=== PATIENT | female | born 1980 | race African-American/Black ===

== ENCOUNTER 2019-11-19 09:49 | Inpatient (IN) | payer MEDICAID, OTHER ==
[~2019-11-19] VITALS: Ht 162.6 cm; Wt 78.0 kg
[2019-11-19] MEDS ORDERED: SODIUM CHLORIDE 0.9% 1,000 ML IVB ONE (11:39)
[2019-11-19] MEDS ORDERED: DOXYCYCLINE 100MG/250ML 250 ML IV ONE (11:45)
[2019-11-19] MEDS ORDERED: ACETAMINOPHEN 325 MG TAB PO ONE (12:00)
[2019-11-19] MEDS ORDERED: AZITHROMYCIN 500MG/ 250ML 250 ML IV ONE (12:45)
[2019-11-19] MEDS ORDERED: DOXYCYCLINE 100 MG TAB/CAP PO SCH (13:30)
[2019-11-19 13:44] LABS: Basophils # (auto) 0 10 ^3/uL (0-0.2); Basophils % (auto) 0.2 % (0.0-2.0); Eosinophils # (auto) 0 10 ^3/uL (0-0.8); Hematocrit 39.1 % (36.0-46.0); Lymphocytes # (auto) 0.7 10 ^3/uL (0.4-5.4); Lymphocytes % (auto) 26.2 % (10.0-50.0); Mean Corpuscular Hemoglobin 29.2 pg (28.0-32.0); Mean Corpuscular Hgb Conc. 33.2 g/dL (32.0-36.0); Mean Corpuscular Volume 87.9 fL (80.0-100.0); Monocytes # (auto) 0.3 10 ^3/uL (0-1.3); Neutrophils # (auto) 1.6 10 ^3/uL (1.6-8.6); Neutrophils % (auto) 62.6 % (37.0-80.0); Nucleated Red Blood Cells % 0.1 %; Platelet Count (auto) 178 10^3/uL (140-450); Red Blood Cells 4.44 10^6/uL (4.0-5.20); Red Cell Distribution Width 13.9 % (11.8-14.3); White Blood Cell 2.5 10^3/uL (4.4-10.8)
[2019-11-19 14:00] LABS: Calcium 8.2 mg/dL (8.5-10.1); Potassium 3.6 mmol/L (3.5-5.1)
[2019-11-19 14:06] LABS: Albumin 3.4 g/dL (3.4-5.0); BUN/Creatinine Ratio 10.7; Bilirubin, Total 0.2 mg/dL (0.2-1.0); Magnesium 2.6 mg/dL (1.6-2.6); Total Protein 7.8 g/dL (6.4-8.2)
[2019-11-19] MEDS ORDERED: ZINC SULFATE 220mg CAP or TAB PO ONE (14:45)
[2019-11-19] MEDS ORDERED: ASCORBIC ACID 500 MG TAB PO ONE (14:45)
[2019-11-19] MEDS ORDERED: SODIUM CHLORIDE 0.9% 1,000 ML IV SCH (14:47)
[2019-11-19] MEDS ORDERED: ALUM & MAG HYDROX-SIMETH LIQ(MAALOX) 30 ML PO PRN (15:00)
[2019-11-19] MEDS ORDERED: DexAMETHasone 4 MG TAB PO ONE (15:00)
[2019-11-19] MEDS ORDERED: FUROSEMIDE 20 MG/2 ML VIAL IV ONE (15:00)
[2019-11-19] MEDS ORDERED: ONDANSETRON HCL 4 MG/2 ML VIAL IV PRN (15:00)
[2019-11-19] MEDS ORDERED: MORPHINE SULF INJ 2 MG/ML SYRINGE 1ML IV PRN ×2 (15:00)
[2019-11-19] MEDS ORDERED: HYDROcodone-ACET 5/325MG TAB PO PRN (15:00)
[2019-11-19] MEDS ORDERED: DOCUSATE SOD 100 MG CAP PO PRN (15:00)
[2019-11-19] MEDS ORDERED: ACETAMINOPHEN 500 MG TAB PO PRN (15:00)
[2019-11-19] MEDS ORDERED: LORazepam 0.5 MG TAB PO PRN (15:00)
[2019-11-19] MEDS ORDERED: ACETAMINOPHEN 325 MG TAB PO PRN (15:00)
[2019-11-19] MEDS ORDERED: NITROGLYCERIN 0.4 MG SL TAB SL PRN (15:00)
[2019-11-19] MEDS ORDERED: ASCORBIC ACID 1,000 MG TAB PO ONE (15:45)
[2019-11-19 15:46] LABS: Cholesterol 143 mg/dL (< 200)
[2019-11-19 15:51] LABS: HDL Cholesterol 34 mg/dL (40-59); LDL Cholesterol 102 mg/dL (< 100); Triglycerides 58 mg/dL (< 150)
[2019-11-19 16:07] LABS: CRP High Sensitivity 1.59 mg/dL (< 0.3)
[2019-11-19 16:25] LABS: INR 1.02 (0.9-1.15); Partial Thromboplastin Time 30.6 sec (23.64-32.05)
[2019-11-19] MEDS: FUROSEMIDE 20 MG/2 ML VIAL IV SCH (18:00)
[2019-11-19 21:48] VITALS: BP 103/50
[2019-11-19 22:00] VITALS: BP 113/71
[2019-11-19] MEDS: ALBUTEROL SULF HFA 90MCG INH 200DOSE IN SCH (22:00)
[2019-11-19] MEDS ORDERED: DOXYCYCLINE 100MG/250ML 250 ML IV SCH (22:00)
[2019-11-19] MEDS ORDERED: DOXYCYCLINE 100 MG TAB/CAP PO ONE (22:00)
[2019-11-19] MEDS: DexAMETHasone 4 MG TAB PO SCH (22:22)
[2019-11-19] MEDS: DOXYCYCLINE 100 MG TAB/CAP PO SCH (22:23)
[2019-11-19 22:33] VITALS: BP 113/71
[2019-11-20] MEDS ORDERED: ALBUTEROL SULFATE 90 MCG MDI IN ONE (00:03)
[2019-11-20 02:58] LABS: Alcohol, Urine < 3.0 mg/dL (0-10); Amphetamine Screen, Urine NEGATIVE (NEGATIVE); Barbiturate Scree,Urine NEGATIVE (NEGATIVE); Benzodiazephine Screen, Urine NEGATIVE (NEGATIVE); Cannabinoid Screen, Urine NEGATIVE (NEGATIVE); Cocaine Screen, Urine NEGATIVE (NEGATIVE); Opiate Scree,Urine NEGATIVE (NEGATIVE); Phencyclidine Screen, Urine NEGATIVE (NEGATIVE)
[2019-11-20 05:00] VITALS: BP 108/67
[2019-11-20] MEDS: FUROSEMIDE 20 MG/2 ML VIAL IV SCH ×2 (06:00→17:14)
[2019-11-20] MEDS: ALBUTEROL SULF HFA 90MCG INH 200DOSE IN SCH ×3 (06:48→22:40)
[2019-11-20 08:51] LABS: Basophils # (auto) 0 10 ^3/uL (0-0.2); Basophils % (auto) 0.5 % (0.0-2.0); Eosinophils # (auto) 0 10 ^3/uL (0-0.8); Hemoglobin 13.6 g/dL (12.2-16.2); Lymphocytes # (auto) 0.7 10 ^3/uL (0.4-5.4); Lymphocytes % (auto) 27.8 % (10.0-50.0); Mean Corpuscular Hemoglobin 29.2 pg (28.0-32.0); Mean Corpuscular Hgb Conc. 33.2 g/dL (32.0-36.0); Mean Corpuscular Volume 87.9 fL (80.0-100.0); Monocytes # (auto) 0.1 10 ^3/uL (0-1.3); Monocytes % (auto) 5.2 % (0.0-12.0); Neutrophils # (auto) 1.7 10 ^3/uL (1.6-8.6); Neutrophils % (auto) 66.5 % (37.0-80.0); Nucleated Red Blood Cells % 0.1 %; Platelet Count (auto) 230 10^3/uL (140-450); Red Blood Cells 4.66 10^6/uL (4.0-5.20); White Blood Cell 2.6 10^3/uL (4.4-10.8)
[2019-11-20 09:00] VITALS: BP 110/72
[2019-11-20 09:06] LABS: Chloride 105 mmol/L (98-107); Potassium 3.5 mmol/L (3.5-5.1); Sodium 137 mmol/L (136-145)
[2019-11-20 09:17] LABS: Alanine Aminotransferase 23 U/L (13-56); Albumin 3.5 g/dL (3.4-5.0); Alkaline Phosphatase 65 U/L (45-117); Anion Gap 5 (5-15); Aspartate Aminotransferase 25 U/L (15-37); BUN/Creatinine Ratio 9.8; Bilirubin, Total 0.2 mg/dL (0.2-1.0); Blood Urea Nitrogen 6 mg/dL (7-18); CRP High Sensitivity 1.25 mg/dL (< 0.3); Calcium 8.6 mg/dL (8.5-10.1); Carbon Dioxide 27 mmol/L (21-32); Creatine Kinase IFCC 113 U/L (26-192); GFR African American 140 mL/min; GFR Non-African American 115 mL/min; Glucose 103 mg/dL (74-106); Lactate Dehydrogenase 259 U/L (84-246); Magnesium 2.5 mg/dL (1.6-2.6); Phosphorus 2.8 mg/dL (2.5-4.90); Total Protein 8.1 g/dL (6.4-8.2)
[2019-11-20] MEDS: ZINC SULFATE 220mg CAP or TAB PO SCH (11:16)
[2019-11-20] MEDS: DexAMETHasone 4 MG TAB PO SCH ×2 (11:16→22:04)
[2019-11-20] MEDS: DOXYCYCLINE 100 MG TAB/CAP PO SCH ×2 (11:16→22:04)
[2019-11-20] MEDS: CHOLECALCIFEROL (VITD3) 1,000IU=25mCg TAB PO SCH (11:30)
[2019-11-20] MEDS: ASCORBIC ACID 1,000 MG TAB PO SCH (11:30)
[2019-11-20] MEDS: ENOXAPARIN SOD 40 MG/0.4 ML SYRINGE SC SCH (11:31)
[2019-11-20 11:33] LABS: INR 0.99 (0.9-1.15)
[2019-11-20 13:00] VITALS: BP 111/71
[2019-11-20 16:59] VITALS: BP 107/66
[2019-11-20 20:00] VITALS: BP 109/73
[2019-11-20 22:00] VITALS: BP 109/73
[2019-11-21 05:13] VITALS: BP 115/77
[2019-11-21] MEDS: FUROSEMIDE 20 MG/2 ML VIAL IV SCH ×2 (05:59→17:42)
[2019-11-21] MEDS: ALBUTEROL SULF HFA 90MCG INH 200DOSE IN SCH ×3 (06:00→14:05)
[2019-11-21 08:00] VITALS: BP 128/64
[2019-11-21 08:30] VITALS: BP 111/68
[2019-11-21] MEDS: ZINC SULFATE 220mg CAP or TAB PO SCH (09:35)
[2019-11-21] MEDS: ASCORBIC ACID 1,000 MG TAB PO SCH (09:35)
[2019-11-21] MEDS: CHOLECALCIFEROL (VITD3) 1,000IU=25mCg TAB PO SCH (09:35)
[2019-11-21] MEDS: DexAMETHasone 4 MG TAB PO SCH (09:35)
[2019-11-21] MEDS: DOXYCYCLINE 100 MG TAB/CAP PO SCH (09:35)
[2019-11-21] MEDS: ENOXAPARIN SOD 40 MG/0.4 ML SYRINGE SC SCH ×2 (09:36→09:42)
[2019-11-21] MEDS ORDERED: PNEUMOCOCCAL VACC POLYS 25 MCG/0.5 ML VIAL IM ONE (10:00)
[2019-11-21 13:20] VITALS: BP 106/61
[2019-11-21 16:31] VITALS: BP 105/67
[2019-11-21] MEDS ORDERED: POTASSIUM CHL 20 Meq TABLET PO ONE (16:45)
[2019-11-21 18:49] VITALS: BP 115/77
== END 2019-11-21 19:20 | disposition home or self-care (01) | DRG 137 ==
LOC: ER 09:49 → TELE 09:50 → TELE-EAST 20:45
PROVIDERS: ADMIT Hospitalist; ATTEND Internal Medicine
DX: U07.1 COVID-19 (principal); J96.01 Acute respiratory failure with hypoxia; J12.89 Other viral pneumonia; E66.9 Obesity, unspecified; F10.10 Alcohol abuse, uncomplicated; R50.9 Fever, unspecified; J98.11 Atelectasis; D72.819 Decreased white blood cell count, unspecified; J15.9 Unspecified bacterial pneumonia; Y90.9 Presence of alcohol in blood, level not specified; Z82.49 Family history of ischemic heart disease and other diseases of the circulatory system; Z83.3 Family history of diabetes mellitus; Z88.0 Allergy status to penicillin; Z68.29 Body mass index [BMI] 29.0-29.9, adult
CPT/HCPCS: 36415; 71045; 80053; 80061; 80307; 82550; 82728; 83036; 83605; 83615; 83735; 83880; 84100; 84443; 84484; 84550; 84702; 85025; 85379; 85610; 85652; 85730; 86141; 87040; 87070; 87804; 87880; 93005; 94640; 96361; 96365; 96366; G0378